=== PATIENT | female | born 1960 | race Caucasian/White ===

== ENCOUNTER → 2020-08-04 08:08 | Outpatient (BNVA) | payer OTHER, SELFPAY | PROVIDERS: PCP Hospitalist; Visit Provider Internal Medicine | DX: I48.0 Paroxysmal atrial fibrillation (principal); I49.1 Atrial premature depolarization; R00.1 Bradycardia, unspecified; Z98.890 Other specified postprocedural states | CPT/HCPCS: 93005 ==

== ENCOUNTER → 2020-10-26 15:15 | Outpatient (BNVA) | payer OTHER, SELFPAY | PROVIDERS: PCP Hospitalist; Visit Provider Internal Medicine | DX: I48.0 Paroxysmal atrial fibrillation (principal); I49.1 Atrial premature depolarization; R00.1 Bradycardia, unspecified; Z98.890 Other specified postprocedural states | CPT/HCPCS: 93005; 99212 ==

== ENCOUNTER → 2021-05-04 13:32 | Outpatient (BNVA) | payer OTHER, SELFPAY | PROVIDERS: PCP Nurse Practitioner Gerontology; Referring Provider Nurse Practitioner Gerontology; Visit Provider Internal Medicine | DX: I48.0 Paroxysmal atrial fibrillation (principal); I49.1 Atrial premature depolarization; R00.1 Bradycardia, unspecified; Z98.890 Other specified postprocedural states | CPT/HCPCS: 93005; 99212 ==

== ENCOUNTER → 2022-05-03 09:31 | Outpatient (BNVA) | payer OTHER, SELFPAY | PROVIDERS: PCP Nurse Practitioner Gerontology; Referring Provider Nurse Practitioner Gerontology; Visit Provider Internal Medicine | DX: I48.0 Paroxysmal atrial fibrillation (principal); I49.1 Atrial premature depolarization; R00.1 Bradycardia, unspecified; Z79.899 Other long term (current) drug therapy; Z51.81 Encounter for therapeutic drug level monitoring | CPT/HCPCS: 93005; 99212 ==

== ENCOUNTER 2023-05-09 09:08 | Outpatient (AMB) | payer OTHER, SELFPAY ==
--- NOTE | 2023-05-09 09:13 | A.OFFVIS_ITS ---
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 To recall, in 2018, she had atrial fibrillation with rapid rate. Underwent CONSUELO/cardioversion. Then was on Flecainide 50 mg b.i.d.. Was very tired and exhausted with bradycardia and we cut back on the dose to 50 mg once a day. Then had recurrence of atrial fibrillation. Got flecainide 150 mg x 2 and converted to sinus. Then saw EP and had ablation. Had some recurrence initially and there were plans for a 2nd ablation but then we decided to cancel it as she started getting better. In the last year or so, she has had about 2-3 recurrences. They last for a brief time to a few hours but spontaneously resolved. She states she is actually not use flecainide at all. Otherwise, has lost about 40 lb in weight since last time and states she feels excellent. Extremely active with absolutely no limitations. [facility] Medical History (Updated 05/03/22 @ 10:55 by Chirag Hickman MD) Sinus bradycardia Premature atrial contractions Paroxysmal atrial fibrillation Surgical History Status post catheter ablation of atrial fibrillation History of tonsillectomy History of tubal ligation Family History Father CVD (cardiovascular disease) Unstable angina HTN (hypertension) Diabetes Mother Atrial fibrillation Social History Alcohol intake: current Alcohol intake frequency: holidays/special occasions only Patient Tobacco Use Status: Never used Tobacco Review of Systems Const Denies weakness ENT Denies dizziness Card Denies chest pain, Denies chest pain with activity, Denies syncope, Denies rapid heart rate, Denies pedal edema, Denies edema, Denies leg edema, Denies lightheadedness, Denies palpitations, Denies dyspnea, Denies dyspnea on exertion and Denies orthopnea Resp Denies cough, Denies dyspnea and Denies dyspnea on exertion GI Denies hematochezia and Denies change in stool character Musc Denies abnormal gait, Denies muscle cramps, Denies muscle weakness, Denies numbness, Denies radiating pain into limb and Denies tingling Neuro Denies abnormal gait, Denies dizziness, Denies syncope, Denies numbness, Denies tingling and Denies weakness Endo Denies palpitations Physical Exam Vital Signs: Last Vital Signs Pulse 47 L 05/09/23 09:14 BP 106/54 L 05/09/23 09:14 BMI result Body Mass Index 23.5 Const General: comfortable and no acute distress Orientation/consciousness: patient oriented x3 HEENT Other: Unremarkable Head: Yes normal to inspection Neck Neck: Yes normal visual inspection Chest Chest palpation & inspection: normal inspection of the chest Resp Auscultation: clear to auscultation bilaterally Cardio Palpation: normal PMI Heart sounds: S1 normal heart sound present, S2 normal heart sound present, no gallops, Murmur heart sound present systolic I/ and at the right sternal border and no rubs GI Palpation (GI): Soft to palpation Back/Spine/Pelvis Other: unremarkable Skin General skin exam: no rashes or lesions noted Neuro General: patient oriented x3 Extrem General: Yes normal to inspection Psych Mental Status: mental status grossly normal Office Procedures EKG Details: EKG with sinus bradycardia at 47/Min; loaded QRS; cannot exclude old anteroseptal infarct; [place] [id number], Complete Assessment & Plan Assessment & Plan (1) Paroxysmal atrial fibrillation: Code(s): I48.0 - Paroxysmal atrial fibrillation (2) Premature atrial contractions: Code(s): I49.1 - Atrial premature depolarization (3) Status post catheter ablation of atrial fibrillation: Code(s): Z98.890 - Other specified postprocedural states (4) Sinus bradycardia: Code(s): R00.1 - Bradycardia, unspecified (5) Encounter for monitoring anti-arrhythmic therapy: Code(s): Z51.81 - Encounter for therapeutic drug level monitoring; Z79.899 - Other nursing home (current) drug therapy Plan Infrequent, spontaneously solving episodes of atrial fibrillation. Currently not on any regular medications. If needed, may take flecainide 100 mg and a 2nd dose if necessary. In the past, she has taken 150 mg x 2 with no significant issues. Due to low thromboembolic risk, not on any anticoagulation. Has taken Eliquis in the past. As she has lost about 40 lb in weight, less likely to have recurrent atrial fibrillation. Total time spent including review of smart phone data, counseling, documentation, review of records, coordination of care-32 minutes. Coding Level of Care Code Est Pt Level 4 (80732) Diagnoses Paroxysmal atrial fibrillation I48.0 Premature atrial contractions I49.1 Status post catheter ablation of atrial fibrillation Z98.890 Sinus bradycardia R00.1 Encounter for monitoring anti-arrhythmic therapy Z51.81; Z79.899 CPT Codes EKG - CPT: 80879-Gemhypjzobhdrsypk, Complete ([id number])
[2023-05-09 09:14] VITALS: BP 106/54; PULSE 47; BMI 23.5
== END 2023-05-09 10:04 | disposition home or self-care (01) ==
PROVIDERS: PCP Nurse Practitioner Gerontology; Visit Provider Internal Medicine
DX: I48.0 Paroxysmal atrial fibrillation (principal); I49.1 Atrial premature depolarization; Z98.890 Other specified postprocedural states; Z51.81 Encounter for therapeutic drug level monitoring; Z79.899 Other long term (current) drug therapy
CPT/HCPCS: 93010; 99214

== ENCOUNTER → 2023-05-09 09:08 | Outpatient (BNVA) | payer OTHER, SELFPAY | PROVIDERS: PCP Nurse Practitioner Gerontology; Visit Provider Internal Medicine | DX: I48.0 Paroxysmal atrial fibrillation (principal); I49.1 Atrial premature depolarization; R00.1 Bradycardia, unspecified; Z79.899 Other long term (current) drug therapy | CPT/HCPCS: 93005; 99212 ==

== ENCOUNTER 2024-10-17 15:03 | Emergency (ER) | payer OTHER, SELFPAY ==
--- NOTE | ~2024-10-17 | XR_ITS ---
CLINICAL HISTORY: weakness 1 view chest x-ray. Comparison: None Findings: Heart size normal. Pulmonary vasculature is normal. No pleural effusion. No acute fracture. Impression: Lungs are generally well-aerated. There is increased right infrahilar opacity consistent with alveolar inflammatory process. Consider adding lateral view on follow-up exam. This document has been electronically signed by: Roberto Gilbert MD on 10/17/2024 16:18:37
[2024-10-17 15:12] VITALS: BP 91/51; PULSE 80; O2SAT 96
[2024-10-17 15:23] VITALS: BP 91/43; PULSE 68; RESP 16; TEMP 36.4; O2SAT 94; BMI 24.7
--- NOTE | 2024-10-17 15:26 | ED_ITS ---
HPI - General Adult General Chief complaint: Weakness Stated complaint: WEAKNESS HYPOTENSIVE Time Seen by Provider: 10/17/24 15:25 Source: patient, family (patient's ) and EMS Mode of arrival: EMS Limitations: no limitations History of Present Illness ED Provider: Rosalinda Cat PA-C HPI narrative: Patient is a 64 year old assigned female at with a history of paroxysmal atrial fib presenting to the emergency department today with now resolving weakness. Patient states that she did an all-star work out earlier today in the gym and then went to the [employer] [facility] which she participated in by drinking 1/2 nip bottle of alcohol and 2 hits of what she believes was indigo marijuana. Patient states that shortly after that she began to feel weak / lightheaded. 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 Patient states that as she has gotten IV fluids she has felt better. Relieving factors: none Exacerbating factors: none Associated symptoms: weakness (improving) Treatments prior to arrival: other (IV fluids initiated by EMS) Related Data Previous Rx's ?Medication ?Instructions ?Recorded flecainide 100 mg tablet 100 mg PO .COMPLEX PRN atrial 05/03/22 fibrillation #30 tabs Allergies Allergy/AdvReac Type Severity Reaction Status Date / Time No Known Allergies Allergy Verified 10/17/24 15:25 [No Known Allergies*] Review of Systems 2 Constitutional: Constitutional: Reports as per HPI and Reports weakness (improving) Eyes: Eyes: Reports as per HPI ENT: Reports as per HPI Cardiovascular: Cardiovascular: Reports as per HPI Respiratory: Respiratory: Reports as per HPI Gastrointestinal: Gastrointestinal: Reports as per HPI Genitourinary: Genitourinary: Reports as per HPI Musculoskeletal: Musculoskeletal: Reports as per HPI Integumentary/Breasts: Skin/Breast: Reports as per HPI Neurologic: Reports as per HPI, Denies confusion and Reports weakness (improving) Psychiatric: Psychiatric: Reports as per HPI and Denies confusion Endocrine: Endocrine: Reports as per HPI Hematologic/Lymphatic: Hematologic/Lymphatic: Reports as per HPI Allergic/Immunologic: Allergic/Immunologic: Reports as per HPI [facility] Past Medical History Attestation statement: The following information was validated with the patient. (all information validated with the patient's ) Source: old records reviewed, obtained from family (patient's provided additional history and confirmed the history provided by the patient.) and nursing notes reviewed Medical History Sinus bradycardia Premature atrial contractions Paroxysmal atrial fibrillation Surgical History Status post catheter ablation of atrial fibrillation History of tonsillectomy History of tubal ligation Family History Family History Father CVD (cardiovascular disease) Unstable angina HTN (hypertension) Diabetes Mother Atrial fibrillation Social History Social History Alcohol intake: current Alcohol intake frequency: holidays/special occasions only Patient Tobacco Use Status: Never used Tobacco Advance Directives: No Advance Directives Information Provided: No Physical Exam ED Vital Signs: Vital Signs - 24 hr 10/17/24 15:23 10/17/24 16:47 10/17/24 16:51 Temperature 97.5 F 97.4 F 97.4 F Pulse Rate 68 58 58 Respiratory Rate 16 16 16 Blood Pressure 91/43 L 103/49 L 103/49 L Pulse Oximetry 94 96 96 Oxygen Delivery Method Room Air Room Air Room Air BMI result Body Mass Index 24.7 Const General: cooperative, healthy appearing, comfortable and no acute distress; No confusion, diaphoretic or tired appearing Nutritional Appearance: well nourished and thin Orientation/consciousness: oriented to person, oriented to place, oriented to time and No confusion Limitations: no limitations HENMT Head: Yes atraumatic Ears: hearing grossly normal bilaterally General nose exam: Normal external nose present Face and sinus: Yes normal facial exam Mouth: no drooling Neuro General: oriented to person, oriented to place, oriented to time and No confusion Medications Administered Discontinued Medications Generic Name Dose Route Start Last Admin Trade Name Freq PRN Reason Stop Dose Admin Sodium Chloride 1,000 mls @ 999 mls/hr 10/17/24 16:00 10/17/24 16:14 Ns IV 10/17/24 17:00 999 mls/hr .Q1H1M ANI Administration Medical Decision Making Medical Decision Making MDM Narrative: Patient is a 64 year old assigned female at with a history of paroxysmal atrial fib presenting to the emergency department today with now resolved weakness. Patient's limited physical exam performed was unremarkable. Patient's blood work was unremarkable. Patient's urine showed no evidence of acute infection. Patient's EKG was unremarkable. Patient's chest x-ray showed no acute process. I explained my physical exam findings as well as all test results to the patient and the patient's . I answered all questions asked by the patient and the patient's . Patient received 1.5L of NS which, upon re- evaluation, she stated it helped her symptoms significantly. I stressed the importance of the patient taking her medication as directed (either prescribed or as the over the counter packaging recommends). I stressed the importance of the patient following up with her primary care provider as scheduled. I stressed the importance of the patient returning to the emergency department immediately if her symptoms were to worsen or if she were to develop any dizziness, shortness of breath, difficulty breathing, chest pain, blurry vision, loss of vision, nausea, vomiting, abdominal pain, fever, chills, back pain, or any other complaints. Patient and the patient's verbalized agreement and understanding with this treatment plan and discharge. Patient requested a printed copy of her lab results, chest x-ray, and EKG which I provided to her. Differential Diagnosis Differential Diagnoses: The differential diagnosis associated with the presentation includes Weakness Near syncope Admission/Observation Consideration of admission/observation: Escalation of care including admission/observation considered Patient would have been admitted to the hospital had her work up had any findings where hospital admission was appropriate and her clinical presentation warranted hospital admission. Lab Data [facility] Lab Attestation statement: I reviewed the patient's lab results. My interpretation of these results are in the [facility] Rationale portion of this note. 10/17/24 15:55 10/17/24 15:55 Labs: Lab Results 10/17/24 Range/Units 15:55 WBC 5.0 (4.8-10.8) X10*3/uL RBC 3.34 L (4.20-5.50) X10*6/uL Hgb 11.7 L (12.0-16.0) g/dl Hct 33.7 L (37.0-47.0) % MCV 100.9 H (80.0-98.0) fL MCH 35.0 H (27.0-33.0) pg MCHC 34.7 (31.0-35.0) g/dl RDW 11.3 (11.0-16.0) % Plt Count 120 L (160-400) X10*3/uL MPV 10.5 (9.4-12.3) fL Immature Gran % (Auto) 0.2 (0.0-0.4) % Neut % (Auto) 64.4 (45-73) % Lymph % (Auto) 28.6 (20-40) % [place] % (Auto) 5.0 (2-11) % Eos % (Auto) 1.6 (0-4) % Baso % (Auto) 0.2 (0-2) % Lymph # (Auto) 1.4 (1.2-4.9) X10*3/uL [place] # (Auto) 0.3 (0.1-1.2) X10*3/uL Eos # (Auto) 0.1 (0.0-0.4) X10*3/uL Baso # (Auto) 0.0 (0.0-0.2) X10*3/uL Abs Immat Gran (auto) 0.01 (0.00-0.03) X10*3/uL Absolute Neuts (auto) 3.2 (2.0-8.3) x10*3/uL Absolute Nucleated RBC 0.000 (0.0-0.012) X10*3/uL Nucleated RBC % (auto) 0.0 (0.0-0.2) /100WBC PT 13.7 H (10.9-12.4) SEC INR 1.2 H (0.9-1.1) Sodium 140 (135-145) mmol/L Potassium 3.8 (3.3-5.1) mmol/L Chloride 108 (96-108) mmol/L Carbon Dioxide 24 (22-29) mmol/L Anion Gap 12 (12-20) BUN 25 H (9-16) mg/dL Creatinine 0.75 (0.5-1.4) mg/dL Estim Creat Clear Calc 74.6 Estimated GFR > 60 Random Glucose 105 (60-115) mg/dL Calcium 8.9 (8.4-10.2) mg/dL Magnesium 1.6 (1.6-2.6) mg/dL Total Bilirubin 0.4 (0.0-1.0) mg/dL AST 22 (5-31) U/L ALT 14 (0-31) U/L Alkaline Phosphatase 27 L (39-117) U/L Troponin I High Sens 8.4 (<3.5-17.0) ng/L Total Protein 6.1 L (6.5-8.0) g/dL Albumin 3.8 (3.5-5.0) g/dL Urine Color Dark Yellow Urine Appearance Clear Urine pH 5.5 (5.0-9.0) Ur Specific [place] 1.020 (1.005-1.025) Urine Protein Trace (Neg-Trace) mg/dL Urine Glucose (UA) Negative (Negative) mg/dL Urine Ketones 15 (Negative) mg/dL Urine Blood Negative (Negative) Urine Nitrite Negative (Negative) Ur Leukocyte Esterase Trace H (Negative) Urine RBC 3-5 H (0-2) /HPF Urine WBC 0-5 (0-5) /HPF Ur Squamous Epith Cells 0-2 (0-2) /HPF Urine Bacteria None Seen (None Seen) Hyaline Casts 0-2 (0-2) /LPF Influenza Type A (PCR) NEGATIVE (Negative) Influenza Type B (PCR) NEGATIVE (Negative) RSV RNA Qual (PCR) NEGATIVE (Negative) SARS-CoV-2 RNA (RT-PCR) NEGATIVE (Negative) Independent Interpretation I performed an independent interpretation of an: EKG and Plain X-Ray Interpretation: My interpretation is in agreement with the radiologist's impression of this imaging study. L CLINICAL HISTORY: weakness 1 view chest x-ray. Comparison: None Findings: Heart size normal. Pulmonary vasculature is normal. No pleural effusion. No acute fracture. Impression: Lungs are generally well-aerated. There is increased right infrahilar opacity consistent with alveolar inflammatory process. Consider adding lateral view on follow-up exam. This document has been electronically signed by: Roberto Gilbert MD on 10/17/2024 16:18:37 Dictated By: Roberto Gilbert MD Signed By: Electronically signed by Robetro Gilbert MD 10/17/24 1619 I independently interpreted this EKG and am in agreement with the below findings: Vent. Rate: 63 BPM Atrial Rate: 63 BPM P-R Int: 164 ms QRS Dur: 84 ms QT Int: 366 ms P-R-T Axes: 77 -2 24 degrees QTcB Int: 374 ms Sinus rhythm with Premature atrial complexes Low voltage QRS Cannot rule out Anteroseptal infarct (cited on or before 10-Jun-2018) When compared with ECG of 04-Mar-2019 13:15, Premature atrial complexes are now Present QRS axis Shifted right Criteria for Inferior infarct are no longer Present DD/ 1541 Radiology Impression Discussion of test interpretation with radiology: I have reviewed the radiologist's reading. Independent Historian Clinical information obtained from an independent historian. History obtained from or confirmed by: Spouse (Patient's provided additional history and confirmed the history provided by the patient.) and EMS (EMS provided additional history and confirmed the history provided by the patient.) Discharge Plan Discharge Clinical Impression: Weakness Patient Disposition: Home, Self-Care Instructions: Liquids and Hydration for Athletes (ED), Weakness (ED) Additional Instructions: Your work up today was reassuring. Per your request, I've printed your results for you to take to your upcoming primary care provider appointment. Follow up with your primary care provider as scheduled. Please be sure to hydrate well and avoid alcohol or marijuana use without proper hydration. Return to the emergency department immediately if your symptoms worsen or if you develop any numbness, tingling, dizziness, shortness of breath, difficulty breathing, chest pain, blurry vision, loss of vision, nausea, vomiting, abdominal pain, fever, chills, back pain, or any other complaints. Please see the information below about our Patient Portal. If you are not yet enrolled in the [facility] Patient Portal, you will receive an enrollment email invitation following your visit to any [facility] care setting. You may also self-enroll in the Patient Portal by visiting our website: [email or web address] The following information is required to access the Patient Portal: - Your [facility] Medical Record Number - Your personal home email address (must match what is in your electronic medical record, Registration staff can assist with this) - Name - Date of Capabilities of the Patient Portal: - Message some providers - View upcoming appointments - Access your health summary, medical history, and visit history - View current conditions and allergies - View procedure and lab results - View your medications, including guidelines, side effects, and precautions - Complete pre-appointment questionnaires requested by your provider - Ready summary reports of your office visits and procedures To access the Patient Portal Mobile [employer], follow these directions: - Search [employer] in the [employer] Store or [employer] - Download the Sancho - Search for [facility] - Enter your login/password Prescriptions: No Action flecainide 100 mg tablet 100 mg PO .COMPLEX PRN (Reason: atrial fibrillation) Qty: 30 5RF Rx Instructions: as needed for atrial fibrillation Referrals: Dora Hayden NP [Primary Care Provider] - Interventions: ED Discharge Assessment Last Done: 10/17/24 16:51 Discharge Date/Time: 10/17/24 16:52 Print Language: Bahraini
--- NOTE | 2024-10-17 15:26 | ECG_ITS ---
Test Reason : WEAKNESS Blood Pressure : */* mmHG Vent. Rate : 63 BPM Atrial Rate : 63 BPM P-R Int : 164 ms QRS Dur : 84 ms QT Int : 366 ms P-R-T Axes : 77 -2 24 degrees QTcB Int : 374 ms Sinus rhythm with Premature atrial complexes Low voltage QRS Cannot rule out Anteroseptal infarct (cited on or before 10-Jun-2018) Abnormal ECG When compared with ECG of 04-Mar-2019 13:15, Premature atrial complexes are now Present QRS axis Shifted right Criteria for Inferior infarct are no longer Present Referred By: Rosalinda Cat Electronically Signed By: DENISE MENON MD
--- OUTSIDE RECORDS SUMMARY | 2024-10-17 15:26 | XMS_ITS | Patient Health Record ---
Author Organization [facility] Address [address] [place] [address] Care Team Providers Care Open Winder Name Role Phone RUPERTO HODGE Primary Care Provider Reason For Referral No Information Medications Medication SIG (Take, Route, Frequency, Duration) Notes Start Date End Date Status Flecainide Acetate 50 MG as directed Ora lly once daily for 30 days Active Social History Tobacco Use: Social History Observation Description Date Details (start date - stop date) Former Smoker NA - NA Tobacco Use/Smoking Question Answer Notes Are you a former smoker How long has it been since y ou last smoked? 6-12 months Additional Findings: Tobacco User Modera te cigarette smoker (10-19 cigs/day) Section Notes: social alcohol use Problems Problem Type SNOMED Code ICD Code Onset Dates Problem Status W/U Status Risk Notes Problem Atrial fibrillation (42183294) Unspecified atrial fibrillation (I48.91) Active confirmed Problem Joint pain (71915237) Pain in unspecified joint (M25.50) Active confirmed Problem Pain of left knee joint (finding) (098400699224269 ) Pain in left knee (M25.562) Active confirmed Problem Dizziness and giddiness (199122151) Dizziness and giddiness (R42) Active confirmed Plan Of Treatment Pending Test Test Name Order Date Xray: Toe(S) Right 01/01/2019 Xray: Toe(S) Right 01/01/2019 Insurance Providers Payer Name Payer Address Payer Phone Subscriber Number Group Number Insured Name Patient Relationship to Insured Coverage Start Date Coverage End Date [facility] [address] [place] [phone] [id number] Elsa Nelson Self - patient is the insured Medical (General) History Medical History History ICD Code Atrial fibrillation status post Cardiove rsion
[2024-10-17 15:59] LABS: MANUAL DIFF FLAG NO
[2024-10-17 16:03] LABS: Basophils Percent Auto 0.2 % (0-2); Eosinophils Absolute Auto 0.1 X10*3/uL (0.0-0.4); Eosinophils Percent Auto 1.6 % (0-4); Hematocrit 33.7 % (37.0-47.0); Hemoglobin 11.7 g/dl (12.0-16.0); Imm Gran Abs Auto 0.01 X10*3/uL (0.00-0.03); Imm Gran Pct Auto 0.2 % (0.0-0.4); Lymphocytes Absolute Auto 1.4 X10*3/uL (1.2-4.9); Lymphocytes Percent Auto 28.6 % (20-40); Mean Corpuscular HGB Conc 34.7 g/dl (31.0-35.0); Mean Corpuscular Volume 100.9 fL (80.0-98.0); Mean Platelet Volume 10.5 fL (9.4-12.3); Monocytes Absolute Auto 0.3 X10*3/uL (0.1-1.2); Neutrophils Absolute Auto 3.2 x10*3/uL (2.0-8.3); Neutrophils Percent Auto 64.4 % (45-73); Platelet Count 120 X10*3/uL (160-400); Red Blood Count 3.34 X10*6/uL (4.20-5.50); Red Cell Distribution Width 11.3 % (11.0-16.0)
[2024-10-17 16:04] LABS: Appearance Urine Clear; Color Urine Dark Yellow; Glucose Urine UA Negative (Negative); Leukocyte Esterase Urine Trace (Negative); Nitrite Urine Negative (Negative); PH 5.5 (5.0-9.0); UMIC TRIGGER UACC YES; Urine Blood Negative (Negative); Urine Ketones 15 mg/dL (Negative); Urine Protein Trace mg/dL (Neg-Trace)
[2024-10-17 16:14] LABS: INTERNATIONAL NORM RATIO 1.2 (0.9-1.1); Prothrombin Time 13.7 SEC (10.9-12.4)
[2024-10-17] MEDS: 0.9 % Sodium Chloride 1,000 ML 999 ML IV (16:14)
[2024-10-17 16:18] LABS: Bacteria Urine None Seen (None Seen); Hyaline Casts Urine 0-2 /LPF (0-2); Squamous Epithelial Cell Urine 0-2 /HPF (0-2); WBC Urine 0-5 /HPF (0-5)
[2024-10-17 16:25] LABS: Troponin-I High Sensitivity 8.4 ng/L (<3.5-17.0)
[2024-10-17 16:27] LABS: Alanine Aminotransferase 14 U/L (0-31); Albumin Level 3.8 g/dL (3.5-5.0); Anion Gap 12 (12-20); Aspartate Amino Transferase 22 U/L (5-31); Blood Urea Nitrogen 25 mg/dL (9-16); Calcium 8.9 mg/dL (8.4-10.2); Carbon Dioxide 24 mmol/L (22-29); Chloride 108 mmol/L (96-108); Creatinine Clr Calc Pharmacy 74.6; Estimated Glomerular Filt Rate > 60; Glucose Random 105 mg/dL (60-115); Magnesium 1.6 mg/dL (1.6-2.6); Potassium 3.8 mmol/L (3.3-5.1); Sodium 140 mmol/L (135-145); Total Protein 6.1 g/dL (6.5-8.0)
[2024-10-17 16:40] LABS: Alkaline Phosphatase 27 U/L (39-117); Bilirubin Total 0.4 mg/dL (0.0-1.0)
[2024-10-17 16:46] LABS: Influenza A PCR NEGATIVE (Negative); Influenza B PCR NEGATIVE (Negative); Resp Syncy Virus RNA Qual PCR NEGATIVE (Negative); SARS COV2 PCR INHOUSE NEGATIVE (Negative)
[2024-10-17 16:47] VITALS: BP 103/49; PULSE 58; RESP 16; TEMP 36.3; O2SAT 96
[2024-10-17 16:51] VITALS: BP 103/49; PULSE 58; RESP 16; TEMP 36.3; O2SAT 96
== END 2024-10-17 16:52 | disposition home or self-care (01) ==
PROVIDERS: Physician Assistant Medical; Emergency Provider Emergency Medicine; PCP Nurse Practitioner Gerontology
DX: R53.1 Weakness (principal); I48.0 Paroxysmal atrial fibrillation; Z03.818 Encounter for observation for suspected exposure to other biological agents ruled out
CPT/HCPCS: 0241U; 71045; 80053; 81001; 81003; 83735; 84484; 85025; 85610; 93005; 99283; 99284

== ENCOUNTER → 2024-10-17 15:26 | Outpatient (BNV) | payer OTHER, SELFPAY | PROVIDERS: Emergency Provider Emergency Medicine; PCP Nurse Practitioner Gerontology; Visit Provider Internal Medicine Cardiovascular Disease | DX: I49.1 Atrial premature depolarization (principal) | CPT/HCPCS: 93010 ==

== ENCOUNTER → 2024-10-17 15:26 | Outpatient (BNV) | payer OTHER, SELFPAY | PROVIDERS: Emergency Provider Emergency Medicine; PCP Nurse Practitioner Gerontology; Visit Provider Radiology Diagnostic Radiology | DX: J84.01 Alveolar proteinosis (principal) | CPT/HCPCS: 71045 ==